=== PATIENT | male | born 2000 | race Two or more races ===

== ENCOUNTER 2022-06-16 10:33 | Emergency (ER) | payer MEDICAID ==
[~2022-06-16] VITALS: Ht 185.4 cm; Wt 100.0 kg
[2022-06-16] MEDS ORDERED: ACETAMINOPHEN 500 MG TABLET PO ONE (11:15)
[2022-06-16] MEDS ORDERED: BACITRACIN 0.9 GM PACKET OINTMENT TP ONE (11:15)
[2022-06-16] MEDS ORDERED: PERTUSS(ACELL),DIPH,TET VAC/PF 0.5 ML SYRINGE IM. ONE (11:15)
[2022-06-16] MEDS ORDERED: OxyCODONE HCL 5 MG IR TABLET PO ONE (11:30)
[2022-06-16] MEDS ORDERED: LIDOCAINE 1%/EPI 1:200,000/PF 30 ML VIAL PERC ONE (16:00)
[2022-06-16] MEDS ORDERED: NEOMYCIN/BACITRACIN/POLYMYXIN B OINTMENT PACKET TP ONE (17:30)
[2022-06-16] MEDS ORDERED: CEPHALEXIN MONOHYDRATE 500 MG CAPSULE PO ONE (17:30)
[2022-06-16] MEDS ORDERED: CEPH-558 PO (17:34)
[2022-06-16] MEDS ORDERED: IBUP-1492 PO (17:35)
[2022-06-16 17:55] VITALS: BP 143/87
== END 2022-06-16 18:20 | disposition home or self-care (01) ==
LOC: EMS 10:33
DX: S62.501A Fracture of unspecified phalanx of right thumb, initial encounter for closed fracture (principal); S02.2XXA Fracture of nasal bones, initial encounter for closed fracture; F12.90 Cannabis use, unspecified, uncomplicated; X58.XXXA Exposure to other specified factors, initial encounter; Y93.89 Activity, other specified; Y92.89 Other specified places as the place of occurrence of the external cause; Y99.8 Other external cause status
CPT/HCPCS: 99285; 70450; 73140; 73562; 73590; 73610; 70486; 72125; 73700; 90715; 90471; 12002; J3490

== ENCOUNTER 2022-12-20 01:07 | Emergency (ER) | payer MEDICAID ==
[~2022-12-20] VITALS: Ht 185.4 cm; Wt 118.0 kg
[~2022-12-20 01:07] MED LIST: CEPH-558 PO; IBUP-1492 PO
[2022-12-20 01:52] VITALS: TEMP 98.8
[2022-12-20 02:41] LABS: ALCOHOL, URINE DRUG SCREEN POSITIVE (NEGATIVE); AMPHET/METH SCREEN,URINE NEGATIVE (NEGATIVE); BARBITURATE SCREEN, URINE NEGATIVE (NEGATIVE); BENZODIAZEPINES SCREEN,URINE NEGATIVE (NEGATIVE); CANNABINOID SCREEN,URINE POSITIVE (NEGATIVE); COCAINE SCREEN,URINE NEGATIVE (NEGATIVE); METHADONE SCREEN, URINE NEGATIVE (NEGATIVE); OPIATE SCREEN,URINE NEGATIVE (NEGATIVE); PHENCYCLIDINE SCREEN,URINE NEGATIVE (NEGATIVE)
[2022-12-20 03:45] VITALS: BP 145/84; PULSE 84; RESP 18
== END 2022-12-20 04:20 | disposition home or self-care (01) ==
LOC: EMS 01:09
DX: S01.112A Laceration without foreign body of left eyelid and periocular area, initial encounter (principal); F12.90 Cannabis use, unspecified, uncomplicated; Z98.890 Other specified postprocedural states; Y04.8XXA Assault by other bodily force, initial encounter; Y93.89 Activity, other specified; Y92.89 Other specified places as the place of occurrence of the external cause; Y99.8 Other external cause status
CPT/HCPCS: 12013; 70450; 80307; 99284